=== PATIENT | male | born 1995 | race Hispanic/Latino ===

== ENCOUNTER 2021-06-10 14:48 | Emergency (ER) | payer SELFPAY ==
[~2021-06-10] VITALS: Ht 165.1 cm; Wt 70.0 kg
[2021-06-10] MEDS ORDERED: SODIUM CHLORIDE 0.9% 1000ML 1,000 ML IV SCH (16:45)
[2021-06-10] MEDS ORDERED: ACETAMINOPHEN 325 MG TAB PO ONE (16:45)
[2021-06-10] MEDS ORDERED: SODIUM CHLORIDE 0.9% 50ML 50 ML ONE (17:24)
[2021-06-10] MEDS ORDERED: IOPAMIDOL 370 MG/ML 200 ML INFUS..BTL INJ ONE (17:24)
[2021-06-10] MEDS ORDERED: ACETAMINOPHEN 325 MG TAB ONE (17:33)
[2021-06-10] MEDS ORDERED: SODIUM CHLORIDE 0.9% 1000ML 1,000 ML ONE ×2 (17:33→19:10)
[2021-06-10] MEDS ORDERED: ALBUTEROL/IPRATROPIUM 3 ML NEB NEB ONE (18:45)
[2021-06-10] MEDS: PIPERACILLIN/TAZOBACTAM 3.375 GM in SODIUM CHLORIDE 0.9% 50ML 50 ML IV SCH (18:45)
[2021-06-10] MEDS: SODIUM CHLORIDE 0.9% 1000ML 1,000 ML IV SCH (18:45)
[2021-06-10] MEDS ORDERED: PIPERACILLIN/TAZOBACTAM 3.375 GM VIAL ONE (19:10)
[2021-06-10] MEDS ORDERED: SODIUM CHLORIDE 0.9% 100 ML ONE (19:10)
[2021-06-10] MEDS ORDERED: ALBUTEROL/IPRATROPIUM 3 ML NEB ONE (19:10)
[2021-06-10] MEDS ORDERED: INSULIN REGULAR, HUMAN 100 UNIT/1 ML ONE (19:22)
[2021-06-10] MEDS ORDERED: DEXAMETHASONE SOD PHOS INJ 4 MG/ML SDV ONE (19:27)
[2021-06-10] MEDS ORDERED: Vancomycin IV 1 GM in SODIUM CHLORIDE 0.9% 250ML 250 ML IV ONE (20:00)
[2021-06-11] MEDS: SODIUM CHLORIDE 0.9% 1000ML 1,000 ML IV SCH ×2 (04:44→17:36)
[2021-06-11] MEDS ORDERED: ONDANSETRON HCL INJ 2MG/ML 2ML 2 MG/ML VIAL IV PRN (05:30)
[2021-06-11] MEDS ORDERED: DOCUSATE SODIUM 100 MG CAP PO PRN (05:30)
[2021-06-11] MEDS ORDERED: ZOLPIDEM TARTRATE 5 MG TAB PO PRN (05:30)
[2021-06-11 05:40] LABS: CREATINE KINASE MB 0.4 ng/mL (0-5.0)
[2021-06-11] MEDS: PIPERACILLIN/TAZOBACTAM 3.375 GM in SODIUM CHLORIDE 0.9% 50ML 50 ML IV SCH ×3 (06:02→17:36)
[2021-06-11 06:06] LABS: ALBUMIN 1.8 g/dL (3.5-5.0); ALBUMIN/GLOBULIN RATIO 0.5 (0.8-2.0); ANION GAP 14.4 mmol/L (8-16); CALCIUM 8.2 mg/dL (8.4-10.2); CREATININE, SERUM 0.57 mg/dL (0.72-1.25); POTASSIUM 4.4 mmol/L (3.5-5.1)
[2021-06-11 06:13] LABS: BASOPHILS # (AUTO) 0.1 (0.0-0.1); BASOPHILS % 0.3 % (0.0-1.0); HEMATOCRIT 29.6 % (38.2-49.6); HEMOGLOBIN 10.1 g/dL (14.0-18.0); LYMPHOCYTES # (AUTO) 0.8 (1.0-3.2); LYMPHOCYTES % 5.1 % (18.0-39.1); MEAN CORPUSCULAR HEMOGLOBIN 28.6 pg (28-32); MEAN CORPUSCULAR HGB CONC 34.1 g/dL (31-35); MEAN CORPUSCULAR VOLUME 83.9 fL (81-99); MONOCYTES # (AUTO) 0.8 (0.2-0.8); MONOCYTES % 4.9 % (4.4-11.3); NEUTROPHILS # (AUTO) 13.3 (2.1-6.9); NEUTROPHILS % 83.7 % (38.7-80.0); PLATELET COUNT 227 x10e3/uL (140-360); RED BLOOD COUNT 3.53 x10e6/uL (4.3-5.7); RED CELL DISTRIBUTION WIDTH 14.1 % (11.7-14.4)
[2021-06-11 06:54] LABS: INR 1.36
[2021-06-11 06:55] LABS: PARTIAL THROMBOPLASTIN TIME 33.4 seconds (23.8-35.5)
[2021-06-11] MEDS: FAMOTIDINE 20 MG TAB PO SCH ×2 (08:03→17:36)
[2021-06-11 18:21] VITALS: BP 128/68
== END 2021-06-11 19:50 | disposition other institution (70) ==
LOC: FSED 16:40 → ER 06-11 19:50
DX: R06.02 Shortness of breath (principal); R06.03 Acute respiratory distress; C78.00 Secondary malignant neoplasm of unspecified lung; C78.7 Secondary malignant neoplasm of liver and intrahepatic bile duct; E87.1 Hypo-osmolality and hyponatremia; Z20.822 Contact with and (suspected) exposure to COVID-19
CPT/HCPCS: 36415; 71045; 71260; 76870; 80053; 80307; 81003; 82550; 82553; 83605; 84484; 85025; 85379; 85610; 85730; 87040; 87400; 93005; 93976; 94660; 99285; J0456; J1100; J1817; J2543 ×2; J7030 ×2; J7050 ×2; Q9967; U0002